=== PATIENT | female | born 1990 | race Caucasian/White ===

== ENCOUNTER 2018-02-03 14:13 | Inpatient (IN) ==
[2018-02-03 14:51] LABS: Bilirubin,Urine Negative (Negative); Blood,Urine Negative (Negative); Clarity,Urine Clear (Clear); Color,Urine Yellow (Yellow); Glucose,Urine (UA) Normal (Normal); Ketones,Urine Negative (Negative); Leukocyte Esterase,Urine Small (Negative); Nitrite,Urine Negative (Negative); PH,Urine 6.5 pH Units (5.0-8.0); Protein,Urine Negative (Neg-Trace); Urobilinogen,Urine Normal (Normal)
[2018-02-03 14:55] LABS: Amphetamine Screen,Urine Positive ng/mL (Cutoff=1000); Bacteria,Urine None Seen per hpf (None-Few); Barbiturate Screen,Urine Negative ng/mL (Cutoff=200); Benzodiazepines Screen,Urine Positive ng/mL (Cutoff=200); Cannabinoid Screen,Urine Negative ng/mL (Cutoff = 50); Cocaine Screen,Urine Negative ng/mL (Cutoff= 300); Hyaline Casts,Urine None Seen per lpf (None-Few); Opiate Screen,Urine Negative ng/mL (Cutoff=300); Phencyclidine Screen,Urine Negative ng/mL (Cutoff=25); Squamous Epithelial Cell,Urine Many per lpf (None-Few)
[2018-02-03] MEDS ORDERED: *HR* LORazepam 2 MG/ML VIAL IVP ONE ×2 (15:22→16:42)
--- NOTE | 2018-02-03 15:26 | Emergency Department Note ---
Disposition Clinical Impression: Heroin abuse Benzodiazepine withdrawal Qualifiers: Complication of substance-induced condition: with unspecified complication Qualified Code(s): F13.239 - Sedative, hypnotic or anxiolytic dependence with withdrawal, unspecified Disposition: Admitted As Inpatient Condition: Fair Referrals: NONE,PCP [Primary Care Provider] - Forms: ED Satisfaction Letter, Work/School Release Time of Disposition: 17:21 General Adult HPI - General Chief complaint: ED General Medical Stated complaint: Detoxing,seizure Time Seen by Provider: 02/03/18 15:06 Source: patient Mode of arrival: ambulatory Limitations: no limitations Nursing Notes Reviewed: Yes Vital Signs Reviewed: Yes - History of Present Illness HPI Narrative: 27-year-old female who has a known history of heroin addiction and also benzodiazepine addiction who was in patient detox at [facility] for 3 days was discharged today to go to rehabilitation however at rehabilitation intake she had a seizure. She was not discharged on any taper of benzodiazepines. Pt Subjective Complaint: Seizure benzodiazepine withdrawal Onset (ago): Just [employer] Location: other (Generalized pain) Pain Scale: 9 Quality: aching Consistency: constant Improves with: nothing Worsens with: nothing Treatments Prior to Arrival: none - Related Data Home Medications Medication Instructions Recorded Confirmed Quetiapine Fumarate [Seroquel] 200 mg PO DAILY 02/03/18 02/03/18 lamoTRIgine [Lamictal] 200 mg PO HS 02/03/18 02/03/18 Allergies Allergy/AdvReac Type Severity Reaction Status Date / Time Sulfa (Sulfonamide Allergy See Verified 02/03/18 17:55 Antibiotics) Comments All systems ED: reviewed and negative except as stated. Constitutional: Denies: fever, chills, weakness, weight change Eyes: Denies: eye pain, eye discharge, vision change ENT ED: Denies: ear pain, throat pain, dental pain, hearing loss, epistaxis, congestion, dysphagia Cardiovascular: Denies: chest pain, palpitations, dyspnea on exertion, edema, syncope Respiratory: Denies: cough, dyspnea, wheezes, hemoptysis, stridor Gastrointestinal: Denies: abdominal pain, nausea, vomiting, diarrhea, constipation, hematemesis, melena, hematochezia Genitourinary: Denies: dysuria, frequency, hematuria, discharge Musculoskeletal: Denies: back pain, neck pain, arthralgia, myalgia Integumentary: Denies: rash, abrasion, lesions Neurological: Reports: other (Seizure, generalized pain). Denies: headache, weakness, numbness, paresthesias, confusion, abnormal gait, vertigo Psychiatric: Denies: anxiety, depression, suicidal thoughts, homicidal thoughts , auditory hallucinations, visual hallucinations Endocrine: Denies: fatigue Hematological/Lymphatic: Denies: easy bleeding, easy bruising Allergic/Immunologic: Denies: facial swelling, urticaria Past Medical History - Past Medical History Medical history: Reports: hypertension, seizures, other Surgical history: Reports: cholecystectomy Psychiatric history: Reports: anxiety, bipolar, depression, previous psychiatric hospitalization - Social History Smoking Status: Current every day smoker Smokeless Tobacco Status: No Alcohol use: Reports: heavy Drug use: Reports: cocaine, opiates, methamphetamine, IV Drug Use, prescription drug abuse, other Physical Exam - General Limitations: no limitations General appearance: alert - Head Head exam: atraumatic, normocephalic, normal inspection - Eye Eye exam: Present: normal appearance, PERRL, EOMI - ENT ENT exam: normal exam, normal oropharynx, mucous membranes moist - Neck Neck exam: Present: normal inspection, full ROM, trachea midline - Chest Chest inspection: Present: normal inspection, symmetric chest wall rise - Respiratory Respiratory exam: Present: normal lung sounds bilaterally - Cardiovascular Cardiovascular exam: Present: regular rate, normal rhythm, normal heart sounds - Abdominal Exam Abdominal exam: Present: soft, Non-Tender. Absent: tenderness, distention, guarding, rebound, rigidity - Extremities Exam Extremities exam: Present: normal inspection, full ROM. Absent: tenderness, pedal edema - Expanded Lower Extremity Exam Neurovascular/Tendon exam: Absent: motor deficit, sensory deficit, tendon deficit Gait: observed and normal - Back Exam Back exam: Present: normal inspection, full ROM. Absent: tenderness - Neurological Exam Neurological exam: Present: alert, oriented X3 - Psychiatric Psychiatric exam: Present: normal affect, normal mood - Skin Skin exam: Present: warm, dry, intact, normal color Course - Reevaluation(s) Reevaluation #1: 27-year-old with benzo withdrawal seizure likely. Patient will be admitted for evaluation. Time: 17:20 - Consultations Consultation #1: Consult with , request CT of the head and will see in consult. Time: 17:20 Consultation #2: Discussed with Marcelino Eddy, admit Time: 17:21 Vital Signs Temperature 98 F 02/03/18 14:18 Pulse Rate 108 02/03/18 14:18 Respiratory Rate 20 02/03/18 14:18 Blood Pressure 114/74 02/03/18 14:18 O2 Sat by Pulse Oximetry 98 02/03/18 14:18 Temperature 98 F 02/03/18 14:18 Pulse Rate 83 02/03/18 16:48 Respiratory Rate 17 02/03/18 15:32 Blood Pressure 111/62 02/03/18 16:48 O2 Sat by Pulse Oximetry 96 02/03/18 16:48 Oxygen Delivery Oxygen Delivery Room Air Medical Decision Making - Lab Data Lab results reviewed: Yes I reviewed the patient's lab results. Result diagrams: 02/03/18 15:38 02/03/18 15:38 Lab Results 02/03/18 02/03/18 02/03/18 Range/Units 14:30 14:36 14:36 WBC (4.3-11.1) K/mcL RBC (3.82-4.97) M/mcL Hgb (11.5-15.4) g/dL Hct (35.3-44.9) % MCV (83.0-100.0) fL MCH (28.0-33.3) pg MCHC (31.6-35.5) g/dL RDW (11.5-14.5) % Plt Count (140-400) K/mcL MPV (9.4-12.4) fL Immature Gran % (0-4) % Seg Neutrophils % % Lymphocytes % % Monocytes % % Eosinophils % % Basophils % % Neutrophils # (1.6-8.9) K/mcL Lymphocytes # (0.6-4.6) K/mcL Monocytes # (0.0-1.3) K/mcL Eosinophils # (0.0-0.6) K/mcL Basophils # (0.0-0.2) K/mcL Sodium (136-145) mEq/L Potassium (3.5-5.1) mEq/L Chloride (98-107) mEq/L Carbon Dioxide (23-29) mEq/L BUN (6-20) mg/dL Creatinine (0.60-1.20) mg/dL Est GFR ( Amer) (> 60) Est GFR (Non-Af Amer) (> 60) BUN/Creatinine Ratio (6-26) Glucose (70-105) mg/dL Calculated Osmolality (280-300) Calcium (8.6-10.3) mg/dL Total Bilirubin (0.3-1.0) mg/dL Direct Bilirubin (0.0-0.2) mg/dL Indirect Bilirubin (0.0-1.2) mg/dL AST (13-39) Units/L ALT (7-52) Units/L Alkaline Phosphatase (34-104) Units/L Serum Total Protein (6.4-8.9) g/dL Albumin (3.5-5.7) g/dL Globulin (2.4-3.5) g/dL Albumin/Globulin Ratio (1.1-2.2) Urine Color Yellow (Yellow) Urine Clarity Clear (Clear) Urine pH 6.5 (5.0-8.0) pH Units Ur Specific Benson 1.020 (1.010-1.025) Urine Protein Negative (Neg-Trace) mg/dL Urine Glucose (UA) Normal (Normal) mg/dL Urine Ketones Negative (Negative) mg/dL Urine Blood Negative (Negative) Urine Nitrite Negative (Negative) Urine Bilirubin Negative (Negative) Urine Urobilinogen Normal (Normal) mg/dL Ur Leukocyte Esterase Small H (Negative) Urine Microscopic RBC 3-5 H (0-3) per hpf Urine Microscopic WBC 3-5 H (0-3) per hpf Ur Squamous Epith Cells Many H (None-Few) per lpf Urine Bacteria None Seen (None-Few) per hpf Hyaline Casts None Seen (None-Few) per lpf Urine Test Negative (Negative) Salicylates (15.0-30.0) mg/dL Urine Opiates Screen Negative (Bvshwx=036) ng/mL Acetaminophen (10-20) mcg/mL Ur Barbiturates Screen Negative (Gksuqo=534) ng/mL Ur Phencyclidine Scrn Negative (Cutoff=25) ng/mL Ur Amphetamines Screen Positive H (Dxxmww=8732) ng/mL U Benzodiazepines Scrn Positive H (Jgxiad=291) ng/mL Urine Cocaine Screen Negative (Cutoff= 300) ng/mL U Marijuana (THC) Screen Negative (Cutoff = 50) ng/mL Ethyl Alcohol (Less than 10) mg/dL 02/03/18 02/03/18 Range/Units 15:38 15:38 WBC 7.7 (4.3-11.1) K/mcL RBC 4.81 (3.82-4.97) M/mcL Hgb 14.4 (11.5-15.4) g/dL Hct 40.6 (35.3-44.9) % MCV 84.4 (83.0-100.0) fL MCH 29.9 (28.0-33.3) pg MCHC 35.5 (31.6-35.5) g/dL RDW 13.2 (11.5-14.5) % Plt Count 341 (140-400) K/mcL MPV 9.1 L (9.4-12.4) fL Immature Gran % 0.3 (0-4) % Seg Neutrophils % 63.6 % Lymphocytes % 26.5 % Monocytes % 6.2 % Eosinophils % 2.6 % Basophils % 0.8 % Neutrophils # 4.9 (1.6-8.9) K/mcL Lymphocytes # 2.1 (0.6-4.6) K/mcL Monocytes # 0.5 (0.0-1.3) K/mcL Eosinophils # 0.2 (0.0-0.6) K/mcL Basophils # 0.1 (0.0-0.2) K/mcL Sodium 137 (136-145) mEq/L Potassium 4.2 (3.5-5.1) mEq/L Chloride 104 (98-107) mEq/L Carbon Dioxide 27 (23-29) mEq/L BUN 10 (6-20) mg/dL Creatinine 0.61 (0.60-1.20) mg/dL Est GFR ( Amer) > 60 (> 60) Est GFR (Non-Af Amer) > 60 (> 60) BUN/Creatinine Ratio 16 (6-26) Glucose 77 (70-105) mg/dL Calculated Osmolality 282 (280-300) Calcium 9.8 (8.6-10.3) mg/dL Total Bilirubin 0.6 (0.3-1.0) mg/dL Direct Bilirubin 0.1 (0.0-0.2) mg/dL Indirect Bilirubin 0.5 (0.0-1.2) mg/dL AST 41 H (13-39) Units/L ALT 35 (7-52) Units/L Alkaline Phosphatase 63 (34-104) Units/L Serum Total Protein 7.8 (6.4-8.9) g/dL Albumin 4.4 (3.5-5.7) g/dL Globulin 3.4 (2.4-3.5) g/dL Albumin/Globulin Ratio 1.3 (1.1-2.2) Urine Color (Yellow) Urine Clarity (Clear) Urine pH (5.0-8.0) pH Units Ur Specific Benson (1.010-1.025) Urine Protein (Neg-Trace) mg/dL Urine Glucose (UA) (Normal) mg/dL Urine Ketones (Negative) mg/dL Urine Blood (Negative) Urine Nitrite (Negative) Urine Bilirubin (Negative) Urine Urobilinogen (Normal) mg/dL Ur Leukocyte Esterase (Negative) Urine Microscopic RBC (0-3) per hpf Urine Microscopic WBC (0-3) per hpf Ur Squamous Epith Cells (None-Few) per lpf Urine Bacteria (None-Few) per hpf Hyaline Casts (None-Few) per lpf Urine Test (Negative) Salicylates < 2.5 L (15.0-30.0) mg/dL Urine Opiates Screen (Sjxgsd=598) ng/mL Acetaminophen < 10 L (10-20) mcg/mL Ur Barbiturates Screen (Swtlqw=904) ng/mL Ur Phencyclidine Scrn (Cutoff=25) ng/mL Ur Amphetamines Screen (Zxssit=7515) ng/mL U Benzodiazepines Scrn (Xfbnxw=082) ng/mL Urine Cocaine Screen (Cutoff= 300) ng/mL U Marijuana (THC) Screen (Cutoff = 50) ng/mL Ethyl Alcohol < 10 (Less than 10) mg/dL - EKG Data EKG #1 EKG attestation: Yes I reviewed and interpreted this EKG. EKG shows normal: sinus rhythm Rate: normal Rhythm: NSR [place]/QRS: normal Interpretation: no acute changes
[2018-02-03 15:54] LABS: Basophils # 0.1 K/mcL (0.0-0.2); Basophils % 0.8 %; Eosinophils # 0.2 K/mcL (0.0-0.6); Eosinophils % 2.6 %; Hematocrit 40.6 % (35.3-44.9); Hemoglobin 14.4 g/dL (11.5-15.4); Immature Granulocytes % 0.3 % (0-4); Lymphocytes # 2.1 K/mcL (0.6-4.6); Lymphocytes % 26.5 %; Mean Corpuscular HGB Conc 35.5 g/dL (31.6-35.5); Mean Corpuscular Hemoglobin 29.9 pg (28.0-33.3); Mean Corpuscular Volume 84.4 fL (83.0-100.0); Mean Platelet Volume 9.1 fL (9.4-12.4); Monocytes # 0.5 K/mcL (0.0-1.3); Monocytes % 6.2 %; Neutrophils # 4.9 K/mcL (1.6-8.9); Platelet Count 341 K/mcL (140-400); Red Blood Count 4.81 M/mcL (3.82-4.97); Red Cell Distribution Width 13.2 % (11.5-14.5); Segmented Neutrophils % 63.6 %
[2018-02-03 16:16] LABS: Acetaminophen < 10 mcg/mL (10-20); Alanine Aminotransferase 35 Units/L (7-52); Albumin 4.4 g/dL (3.5-5.7); Albumin/Globulin Ratio 1.3 (1.1-2.2); Alkaline Phosphatase 63 Units/L (34-104); Aspartate Amino Transferase 41 Units/L (13-39); BUN/Creatinine Ratio 16 (6-26); Bilirubin,Direct 0.1 mg/dL (0.0-0.2); Bilirubin,Indirect 0.5 mg/dL (0.0-1.2); Bilirubin,Total 0.6 mg/dL (0.3-1.0); Blood Urea Nitrogen 10 mg/dL (6-20); Calcium 9.8 mg/dL (8.6-10.3); Carbon Dioxide 27 mEq/L (23-29); Chloride 104 mEq/L (98-107); Ethanol < 10 mg/dL (Less than 10); Globulin 3.4 g/dL (2.4-3.5); Glucose 77 mg/dL (70-105); Osmolality,Calculated 282 (280-300); Potassium 4.2 mEq/L (3.5-5.1); Salicylate < 2.5 mg/dL (15.0-30.0); Sodium 137 mEq/L (136-145); Total Protein 7.8 g/dL (6.4-8.9); eGFR For African Americans > 60 (> 60); eGFR For Non-African Americans > 60 (> 60)
--- NOTE | 2018-02-03 20:19 | Internal Med History&Physical ---
<Tello Bermudez P - Last Filed: 02/03/18 21:47> Date of Encounter: 02/03/18 Internal Medicine - H&P: HPI History of present illness: Ms. Ruby is a 27 year old female Internal Medicine - H&P: Meds Quetiapine Fumarate [Seroquel] 50 mg PO HS 02/03/18 [History] lamoTRIgine [Lamotrigine] 200 mg PO DAILY 02/03/18 [History] 3 Allergy/AdvReac Type Severity Reaction Status Date / Time Sulfa (Sulfonamide Allergy See Verified 02/03/18 17:55 Antibiotics) Comments All Systems PM: A 10-system review of systems was performed and is negative for pertinent findings except as documented above in the HPI. - Constitutional Vitals: Temp Pulse Resp BP Pulse Ox 98.0 F 73 16 95/61 96 02/03/18 20:57 02/03/18 20:57 02/03/18 20:57 02/03/18 20:57 02/03/18 20:57 Internal Med - H&P Results - Labs CBC & Chem 7: 02/03/18 15:38 02/03/18 15:38 - Attending Attestation I examined this patient and my medical decision-making was reviewed with the Resident Physician. I agree with the documented findings, disposition and treatment plan as described except to the extent set forth below. multiple comorbid [place] resident came here for detox was in [facility] recently had episode of seizures plan [facility] consult possible transfer to inpatient rehab - Assessment and plan (1) Benzodiazepine withdrawal Current Visit: Yes Status: Acute Qualifiers: Complication of substance-induced condition: with unspecified complication Qualified Code(s): F13.239 - Sedative, hypnotic or anxiolytic dependence with withdrawal, unspecified (2) Heroin abuse Current Visit: Yes Status: Acute (3) ETOH abuse Current Visit: Yes Status: Acute (4) Tobacco abuse Current Visit: Yes Status: Acute (5) Withdrawal seizures Current Visit: Yes Status: Acute (6) Hepatitis C Current Visit: Yes Status: Acute (7) DVT prophylaxis Current Visit: Yes Status: Acute (8) Bipolar disorder Current Visit: Yes Status: Acute (9) Anxiety Current Visit: Yes Status: Acute - Time Spent With Patient Total time spent is greater than 50% in coordination of care (as documented) at patient's floor/unit and/or counseling patient: <Mio Hill - Last Filed: 02/03/18 21:58> Date of Encounter: 02/03/18 Time of Encounter: 20:08 Internal Medicine - H&P: HPI Chief complaint: heroine withdrawal seizure Admitted From: Emergency Dept Plans for Post Hospital Care: Transfer Other History of present illness: Ms. Ruby is a 27 year old female w/ pmh of bipolar, anxiety, hep C, 15 years of IVDU (heroin, cocaine, methamphetamine), benzo addiction, alcohol, tobacco abuse presents with "seizure-like" activity from inpatient drug treatment facility. Hx was gathered from patient and chart review. Patient states that her last IVDU was 8 days ago, in which, she was then admitted to [facility] for heroin withdrawal symptoms. She was treated at [facility] for 3 days, and then discharged yesterday to rehabilitation center with unknown hx of benzo prescription to manage withdrawal. Patient was witnessed having a "tonic-clonic " seizure and then admitted to [facility] ED. She states that her withdrawal symptoms right now are "really bad". She described her Sx as progressively getting worse, relieved when she had her initial dose of ativan in the ED. Patient states that she's had these symptoms multiple times in the past when trying to quit. Patient states she feels "creepy crawlly" things all over her, shivering, anxiety, diaphoresis, headache, chills. Patient denies hallucinations, chest pain, dyspnea, fever. Past Med Surg Social Fam HX - Past Medical History Medical history: hypertension, seizures, other Psychiatric history: anxiety, bipolar, depression, previous psychiatric hospitalization - Past Surgical History Surgical History: cholecystectomy - Social History Smoking Status: Current every day smoker Smokeless Tobacco Status: No Alcohol use: heavy Drug use: cocaine, opiates, methamphetamine, IV Drug Use, prescription drug abuse, other - Family History Mother Living Status: Hx Family Respiratory Disorders: Yes (Metastatic lung cancer) Hx Family Cancer: Yes All Systems PM: A 10-system review of systems was performed and is negative for pertinent findings except as documented above in the HPI. - Constitutional Constitutional: chills, excessive sweating, no fever(s), no night sweats - EENT Eyes: no change in vision, no discharge, no pain, no photophobia Ears: no ear discharge, no ear pain, no tinnitus Nose, mouth and throat: no dysphagia, no nasal discharge, no neck pain, no sore throat - Cardiovascular Cardiovascular ROS IM: diaphoresis, no chest pain, no dyspnea, no lightheadedness, no palpitations, no syncope - Respiratory Respiratory: no cough, no dyspnea, no wheezing, no excessive phlegm production - Gastrointestinal Gastrointestinal: constipation, nausea, no abdominal pain, no diarrhea, no hematemesis, no hematochezia, no melena, no vomiting - Genitourinary Genitourinary: no change in urinary stream, no dysuria, no flank pain, no hematuria - Musculoskeletal Musculoskeletal ROS IM: no numbness, no tingling - Integumentary Integumentary IM: no rash, no unusual bruising - Neurological Neurological ROS: tingling, no abnormal speech, no confusion, no convulsions, no focal weakness, no numbness, no tremor(s) - Psychiatric Psychiatric: anxiety, depression, difficulty concentrating, irritability, no auditory hallucinations, no confusion, no hallucinations, no homicidal ideation , no hopelessness, no suicidal ideation, no visual hallucinations - Hematologic/Lymphatic Hematologic/Lymphatic: no easy bruising - Constitutional Vitals: Temp Pulse Resp BP Pulse Ox 98 F 78 20 120/67 98 02/03/18 14:18 02/03/18 18:12 02/03/18 18:12 02/03/18 18:12 02/03/18 18:12 General appearance: Present: cooperative, disheveled, mild distress, A&O X 3, answers questions appropriately. Absent: pleasant - Head Head exam: Present: atraumatic, normocephalic - Eye Eye exam: Present: PERRL, conjuntiva pink, sclera anicteric Pupils: Present: PERRL - Neck Neck exam general surgery: Present: supple, trachea midline. Absent: lymphadenopathy - Respiratory Respiratory exam: Present: CTAB. Absent: accessory muscle use, rales, rhonchi, wheezes - Cardiovascular Cardiovascular exam: Present: RRR. Absent: diastolic murmur, gallop, rubs, systolic murmur - GI/Abdominal GI/Abdominal exam: Present: hypoactive bowel sounds, soft, no peritoneal signs. Absent: distended, firm, guarding, hernia, hepatomegaly, rebound, rigid, splenomegaly, tenderness - Extremities Exam Extremities exam: Present: warm, radial pulses palpable and symmetrical. Absent : calf tenderness, cyanotic, pedal edema - Neurological Exam Neurological exam: Present: alert, oriented X3, no focal deficits. Absent: pronater drift, facial droop, speech deficit - Psychiatric Psychiatric exam: Present: agitated, anxious Internal Med - H&P Results - Labs CBC & Chem 7: 02/03/18 15:38 02/03/18 15:38 - Assessment and plan (1) Withdrawal seizures Current Visit: Yes Status: Acute Assessment and plan: patient was witnessed at inpatient center of "tonic clonic seizure", unconfirmed at this time. Patient underwent 3 days of treatment at [facility] before being transferred to inpatient treatment center. Unclear hx if patient had taper dosing of benzo's when transferred. Withdrawal most likely multifactorial from heroin, benzo's, and etoh. Last use was 8 days prior to admission into [facility]. Urine tox screen positive for amphetamines and benzo's. Patient has clinical withdrawal symptoms but hx of anxiety and bipolar may be a contributor to active symptoms. Patient given ativan in the ED which temporarily relieved symptoms. Neurology was consulted. They requested a head CT which came back negative for acute processes. Neurology will see patient in consult tomorrow morning. - CIWA protocol; banana bag ordered - restarted home lamotrigine and quetiapine (2) ETOH abuse Current Visit: Yes Status: Acute Assessment and plan: known hx of heavy etoh abuse. will start CIWA protocol, and give banana bag. (3) Tobacco abuse Current Visit: Yes Status: Acute Assessment and plan: ordered nicotine patch (4) Hepatitis C Current Visit: Yes Status: Acute Assessment and plan: patient states she has known hep C for a few years, and has not had any complications. Educated patient on treatments that are available if she is able to abstain from IVDU (5) Benzodiazepine withdrawal Current Visit: Yes Status: Acute Assessment and plan: see above Qualifiers: Complication of substance-induced condition: with unspecified complication Qualified Code(s): F13.239 - Sedative, hypnotic or anxiolytic dependence with withdrawal, unspecified (6) Heroin abuse Current Visit: Yes Status: Acute Assessment and plan: see above (7) Bipolar disorder Current Visit: Yes Status: Acute Assessment and plan: will continue home Rx (8) Anxiety Current Visit: Yes Status: Acute Assessment and plan: will continue home Rx (9) DVT prophylaxis Current Visit: Yes Status: Acute Assessment and plan: SQ heparin - Time Spent With Patient Total time spent is greater than 50% in coordination of care (as documented) at patient's floor/unit and/or counseling patient:
[2018-02-03] MEDS ORDERED: MVI, adult with vitamin K 10 ML in 0.9 % Sodium Chloride 1,000 ML IVC ONE (20:31)
[2018-02-03] MEDS ORDERED: Naloxone 0.4 MG/ML INJ IVP PRN (20:50)
[2018-02-03] MEDS ORDERED: *HR* LORazepam 1 MG TABLET PO PRN (21:59)
[2018-02-03] MEDS ORDERED: *HR* Promethazine 25 MG/ML VIAL IVP PRN (22:21)
[2018-02-04 05:51] LABS: Hematocrit 37.5 % (35.3-44.9); Mean Corpuscular HGB Conc 34.7 g/dL (31.6-35.5); Mean Corpuscular Hemoglobin 29.5 pg (28.0-33.3); Mean Corpuscular Volume 85.2 fL (83.0-100.0); Mean Platelet Volume 9.4 fL (9.4-12.4); Platelet Count 277 K/mcL (140-400); Red Cell Distribution Width 13.2 % (11.5-14.5)
[2018-02-04] MEDS ORDERED: *HR* Heparin 5,000 UNIT/ML VIAL SQ SCH (06:00)
[2018-02-04 06:09] LABS: BUN/Creatinine Ratio 24 (6-26); Blood Urea Nitrogen 12 mg/dL (6-20); Calcium 8.9 mg/dL (8.6-10.3); Carbon Dioxide 25 mEq/L (23-29); Chloride 108 mEq/L (98-107); Glucose 83 mg/dL (70-105); Osmolality,Calculated 287 (280-300); Potassium 3.7 mEq/L (3.5-5.1); Sodium 139 mEq/L (136-145); eGFR For African Americans > 60 (> 60); eGFR For Non-African Americans > 60 (> 60)
[2018-02-04] MEDS: *HR* LORazepam 2 MG/ML VIAL IVP PRN ×2 (06:36→10:14)
[2018-02-04 08:26] VITALS: BP 127/74
--- NOTE | 2018-02-04 08:48 | Neurology - Consult Note ---
Date of Encounter: 02/04/18 Time of Encounter: 07:00 Assessment and Plan (1) Withdrawal seizures Current Visit: Yes Status: Acute Patient was been having typical symptoms of withdrawal evening she had a seizure it was not an epileptic seizure and was likely a withdrawal seizure from the benzos and other multiple substances that she is been abusing There is no indication to start her on any antiepileptic medication at this time. CT scan of the head is negative for any acute abnormality Recommend withdrawal treatment as per protocol, sagar phillips would benefit from inpatient drug rehabilitation in [facility] does not treat withdrawal /intoxication please consult appropriate medicine specialty thank you very much for your kind consultation. please call if any real neurological symptoms Qualifiers: Complication of substance-induced condition: with delirium Qualified Code(s ): F19.231 - Other psychoactive substance dependence with withdrawal delirium (2) Benzodiazepine withdrawal Current Visit: Yes Status: Acute Qualifiers: Complication of substance-induced condition: with unspecified complication Qualified Code(s): F13.239 - Sedative, hypnotic or anxiolytic dependence with withdrawal, unspecified (3) Heroin abuse Current Visit: Yes Status: Acute (4) ETOH abuse Current Visit: Yes Status: Acute History of Present Illness HPI: Ms. Ruby is a 27 year old female with known history of heroin addiction and also benzodiazepine addiction was in patient detox at [facility] for 3 days , earlier she was discharged today to go to rehabilitation however at rehabilitation intake she had a seizure. She was not on any taper of benzodiazepines. She was then seen in the emergency room and got admitted with the withdrawal symptoms. CT of the head is negative for any acute finding chronic changes noted. Patient's remains very anxious and nervous quite jittery having typical symptoms of withdrawal. No evidence of any DRESS CUTTER infection no evidence of any acute stroke on exam as well as on the CT scan Past Med Surg Social Fam HX - Past Medical History Medical history: hypertension, seizures, other Psychiatric history: anxiety, bipolar, depression, previous psychiatric hospitalization - Past Surgical History Surgical History: cholecystectomy - Social History Smoking Status: Current every day smoker Smokeless Tobacco Status: No Alcohol use: heavy Drug use: cocaine, opiates, methamphetamine, IV Drug Use, prescription drug abuse, other - Family History Mother Living Status: Age at : 53 Hx Family Respiratory Disorders: Yes (Metastatic lung cancer) Hx Family Cancer: Yes Medications and Allergies Quetiapine Fumarate [Seroquel] 50 mg PO HS 02/03/18 [History] lamoTRIgine [Lamotrigine] 200 mg PO DAILY 02/03/18 [History] 3 Allergy/AdvReac Type Severity Reaction Status Date / Time Sulfa (Sulfonamide Allergy See Verified 02/03/18 17:55 Antibiotics) Comments All Systems: The remainder of the systems were reviewed and are negative Physical Examination - Vital Signs Vital Signs: Initial Vital Signs Temp Pulse Resp BP Pulse Ox 98 F 108 20 114/74 98 02/03/18 14:18 02/03/18 14:18 02/03/18 14:18 02/03/18 14:18 02/03/18 14:18 - Exam Exam: GENERAL: acute distress, shaking all over quite anxious HEENT: Normal LUNGS: CTA HEART: RRR, S1 S2 Audible, no murmur EXTREMITIES: No Pedal edema. DETAILED NEUROLOGICAL EXAMINATION: MENTAL STATUS: Oriented to person, place, date and situation. Memory: knows the President, Aware of recent events Recent Memory Intact Cranial Nerve Examination: CN - II: Visual Acuity, Field of Vision Normal, Fundus examination: No disk edema, Pupils- size shape reaction to light and accommodation: All normal. CN III, IV, : External ocular movements were intact, Pupils were reactive, Nodrooping of the eyelids CN V: Sensation over the face to light touch and pinprick all normal. Corneal reflexes not tested, jaw jerk normal. CN VII: No facial asymmetry, no flattening of nasolabial folds, no difficulty in closing the eyes, no loss of forehead wrinkles, no difficulty in eye-closure, frowning raising eyebrows. CNVIII: No significant hearing loss CN IX, X: Uvula centralized not deviated, Gag reflex: Not tested CN X1: Sternocleidomastoid, trapezius, normal or evidence of any weakness. CN X11: No Dysarthria, no wasting or fibrilation f tongue muscles, no deviation, tongue muscle strength normal. Motor examination: No hypertrophy, tone was normal, power grade 0-5 Upper limbs Proximal- No difficulty in lifting the arms above the head. Distal- No weakness in distal muscles On formal testing 5/5 all over Lower limbs On formal testing 5/5 all over Coordination: [id number] normal. Target pursuit normal finger tapping normal, Rapid alternating moment of wrist normal Sensory system: Superficial sensations- Touch normal. Pain- Pinprick, Temperature all normal, Deep sensation normal, Joint position sense normal. Cortical sensation, Tactile discrimination, localization and extinction all normal. Deep tendon reflexes. Symmetrical bilateral, No evidence of Babinski. No sign of meningeal irritation Gait Examination: Deferred Results - Laboratory Findings CBC and BMP: 02/04/18 04:58 02/04/18 04:58 Abnormal lab findings: Abnormal lab results Chloride 108 mEq/L (98-107) H 02/04/18 04:58 Creatinine 0.51 mg/dL (0.60-1.20) L 02/04/18 04:58 AST 41 Units/L (13-39) H 02/03/18 15:38 Ur Leukocyte Esterase Small (Negative) H 02/03/18 14:36 Urine Microscopic RBC 3-5 per hpf (0-3) H 02/03/18 14:36 Urine Microscopic WBC 3-5 per hpf (0-3) H 02/03/18 14:36 Ur Squamous Epith Cells Many per lpf (None-Few) H 02/03/18 14:36 Salicylates < 2.5 mg/dL (15.0-30.0) L 02/03/18 15:38 Acetaminophen < 10 mcg/mL (10-20) L 02/03/18 15:38 Ur Amphetamines Screen Positive ng/mL ([id number]) H 02/03/18 14:36 U Benzodiazepines Scrn Positive ng/mL (Lrtxft=587) H 02/03/18 14:36 Consult Discharge Plan - Plan Referrals: NONE,PCP [Primary Care Provider] -
[2018-02-04] MEDS ORDERED: Nicotine 21 MG PATCH.TD24 TD SCH (09:00)
[2018-02-04] MEDS ORDERED: lamoTRIgine 100 MG TABLET PO SCH (09:00)
[2018-02-04] MEDS ORDERED: Ondansetron 4 MG/2 ML VIAL IVP PRN (09:06)
[2018-02-04] MEDS ORDERED: Folic Acid 1 MG TABLET PO SCH (09:15)
[2018-02-04] MEDS ORDERED: 0.9 % Sodium Chloride 1,000 ML IVC SCH (09:15)
[2018-02-04] MEDS ORDERED: Multivit/Ca/Min/Fe/FA 1 TAB TABLET PO SCH (09:15)
[2018-02-04] MEDS ORDERED: Thiamine (B-1) 100 MG TABLET PO SCH (09:15)
[2018-02-04] MEDS ORDERED: *HR* LORazepam 2 MG/ML VIAL IVP PRN ×3 (11:11)
--- NOTE | 2018-02-04 11:33 | Discharge Summary ---
- NOTES TO OUTPATIENT PROVIDER Notes to Outpatient Provider: Patient left AMA despite my urging her to wait for discharge to go to alcohol/opioid rehabilitation. Date of Encounter: 02/04/18 Time of Encounter: 11:33 - Discharge Diagnosis (1) Benzodiazepine withdrawal Priority: Primary Status: Resolved Qualifiers: Complication of substance-induced condition: with unspecified complication Qualified Code(s): F13.239 - Sedative, hypnotic or anxiolytic dependence with withdrawal, unspecified (2) Heroin abuse Priority: Secondary Status: Chronic (3) ETOH abuse Priority: Secondary Status: Chronic (4) Tobacco abuse Priority: Secondary Status: Chronic (5) Withdrawal seizures Priority: Secondary Status: Ruled-out Qualifiers: Complication of substance-induced condition: with unspecified complication Qualified Code(s): F19.239 - Other psychoactive substance dependence with withdrawal, unspecified; R56.9 - Unspecified convulsions (6) Hepatitis C Priority: Secondary Status: Chronic Qualifiers: Viral hepatitis chronicity: unspecified Hepatic coma status: without hepatic coma Qualified Code(s): B19.20 - Unspecified viral hepatitis C without hepatic coma (7) Bipolar disorder Priority: Secondary Status: Chronic Qualifiers: Active/Remission status: remission status unspecified Qualified Code(s): F31.9 - Bipolar disorder, unspecified (8) Anxiety Priority: Secondary Status: Chronic (9) DVT prophylaxis Priority: Secondary Status: Acute Hospital course: Ms. Ruby is a 27 year old female admitted for alcohol abuse and possible seizure activity. She was admitted for observation to general medical floor with telemetry. SW consult was placed for transfer to inpatient rehabilitation facility. She was accepted by facility for transfer. She was started on CIWA protocol for possible alcohol withdrawal, but last alcohol use was 2 weeks ago, so likely not withdrawing at this point. She was also detoxed at [facility] for alcohol and opioids. In my medical opinion, she likely not withdrawing from anything physiologically. She has depressed mood and affect, but denies suicidality. Neurology was consulted for possible seizure activity, but they don't think it is an epileptic seizure. She is medically stable this morning for transfer to rehabilitation facility. While I was working on transfer and discharge paperwork, patient stated that she wants to go outside to smoke and is leaving. I advised her that she would be leaving AMA, and then she would not be able to go to rehabilitation facility. She stated that she still wants to go. I advised her of the risks of leaving AMA, including . She voiced understanding of risks and still left AMA. Discharge discussed with: patient, family, nurse, other (Pharmacist) - Time Spent with Patient Total time spent providing and/or coordinating discharge services: Greater than 30 minutes - Discharge Medications Home Medications: Quetiapine Fumarate [Seroquel] 50 mg PO HS 02/03/18 [History] lamoTRIgine [Lamotrigine] 200 mg PO DAILY 02/03/18 [History] Allergies/Adverse Reactions: 3 Allergy/AdvReac Type Severity Reaction Status Date / Time Sulfa (Sulfonamide Allergy See Verified 02/03/18 17:55 Antibiotics) Comments Date of admission: 02/03/18 20:50 Primary care physician: PCP NONE Consults: 02/03/18 22:21 Consult to [employer]orator [CONS] Routine Reason for SW Consult: drug abuse - Constitutional Vitals: Temp Pulse Resp BP Pulse Ox 97.8 F 75 22 127/74 97 02/04/18 08:25 02/04/18 08:25 02/04/18 08:25 02/04/18 08:25 02/04/18 08:25 General appearance: Present: cooperative, disheveled, mild distress, A&O X 3, answers questions appropriately. Absent: pleasant - Respiratory Respiratory exam: Present: CTAB. Absent: accessory muscle use, rales, rhonchi, wheezes Additional comments: Normal WOB - Cardiovascular Cardiovascular exam: Present: RRR, +S1, +S2. Absent: diastolic murmur, gallop, rubs, systolic murmur Additional comments: No BLE edema - GI/Abdominal GI/Abdominal exam: Present: normal bowel sounds, soft. Absent: distended, hepatomegaly, mass, splenomegaly, tenderness - Psychiatric Psychiatric exam: Present: depressed. Absent: agitated, anxious, suicidal ideation Additional comments: Depressed mood and affect; crying at times - Skin Skin exam: Present: dry, intact, warm. Absent: cyanosis, rash - Patient Status Disposition: Left Against Medical Advice Condition: Fair Functional capacity at discharge: independent ambulation Overall status at discharge: other (Patient is back to baseline medically, but needs rehabilitation for her chronic alcohol/opioid abuse, she refused transfer to rehabilitation facility and left AMA despite education on risks of leaving AMA, including .) - Discharge Instructions Follow Up With: NONE,PCP [Primary Care Provider] -
--- NOTE | 2018-02-05 13:35 | Electrocardiograph Report ---
[address] [address] Test Date: 2018-02-03 Pat Name: Rowan Ruby Department: 102 Room: 2A Gender: F Supervisor Telephone Clerks: : 1990 Requested By: Kurtis Bonilla Order Number: [id number] Reading MD: Dewey Skinner Measurements Intervals [place] Rate: 84 P: 66 WI: 127 QRS: 73 QRSD: 91 T: 48 QT: 351 QTc: 392 Interpretive Statements SINUS RHYTHM Electronically Signed On 02-05-2018 13:33:38 EDT by Dewey Skinner
== END 2018-02-04 11:28 | disposition left against medical advice (07) | DRG 770 ==
LOC: 2ANU 14:13 → EMEROO 14:13 → 2ANU 20:11
PROVIDERS: ADMIT Nurse Practitioner Family; ATTEND Nurse Practitioner Family